=== PATIENT | female | born 1965 | race African-American/Black ===

== ENCOUNTER 2023-05-09 12:57 | Inpatient (IN) | payer OTHER ==
[2023-05-09 14:06] VITALS: BMI 20.5
[2023-05-09] MEDS ORDERED: BENZONATATE 200 MG CAPSULE PO PRN (14:37)
[2023-05-09] MEDS ORDERED: NALOXONE HCL (KLOXXADO) 8 MG SPRAY NS PRN (14:37)
[2023-05-09] MEDS ORDERED: MAG HYDROX/AL HYDROX/SIMETH 30 ML UNIT-DOSE CUP PO PRN (14:37)
[2023-05-09] MEDS ORDERED: LOPERAMIDE HCL 2 MG CAPSULE PO PRN (14:37)
[2023-05-09] MEDS ORDERED: MAGNESIUM HYDROX 2400MG/30ML ORAL SUSPENSION 30 ML CUP PO PRN (14:37)
[2023-05-09] MEDS ORDERED: ACETAMINOPHEN 325 MG TABLET (FP) PO PRN (14:37)
[2023-05-09] MEDS ORDERED: DICYCLOMINE HCL 10 MG CAPSULE PO PRN (14:37)
[2023-05-09] MEDS ORDERED: NALOXONE HCL 0.4 MG/ML VIAL IM PRN (14:37)
[2023-05-09] MEDS ORDERED: ONDANSETRON *ODT* 4 MG TABLET SL PRN (14:37)
[2023-05-09] MEDS ORDERED: NICOTINE POLACRILEX 2 MG GUM BUC PRN (14:37)
[2023-05-09] MEDS ORDERED: BENZOCAINE/MENTHOL (CHLORASEPTIC ) LOZENGE MM PRN (14:37)
[2023-05-09] MEDS ORDERED: POLYETHYLENE GLYCOL (HEALTHYLAX) 3350 17 GM PACKET PO PRN (14:37)
[2023-05-09] MEDS ORDERED: BISMUTH SUBSALICYLATE 524 MG/30 ML PO PRN (14:37)
[2023-05-09] MEDS ORDERED: guaiFENesin 600 MG TABLET.ER (FP) PO PRN (14:37)
[2023-05-09] MEDS ORDERED: P-EPHED 60MG/TRIPROLIDI 2.5MG TABLET PO PRN (14:37)
[2023-05-09] MEDS ORDERED: METOPROLOL TARTRATE 25 MG TABLET (FP) ONE (14:50)
[2023-05-09] MEDS: METOPROLOL TARTRATE 25 MG TABLET (FP) PO ONE (14:52)
[2023-05-09] MEDS: INSULIN ASPART SLIDING SCALE (NOVOLOG) 1 VIAL SQ SCH (15:02)
[2023-05-09] MEDS: METHOCARBAMOL 500 MG TABLET PO PRN (18:03)
[2023-05-09] MEDS: methaDONE HCL 10 MG TABLET (FOR DETOX USE ONLY) PO ONE (20:15)
[2023-05-09] MEDS: cloNIDine HCL 0.1 MG TABLET PO PRN (20:16)
[2023-05-09] MEDS: IBUPROFEN 600 MG TABLET (FP) PO PRN (20:18)
[2023-05-09] MEDS: MELATONIN 5 MG TABLETS PO SCH (22:32)
[2023-05-09] MEDS: THIAMINE HCL 100 MG TABLET (FP) PO SCH (22:32)
[2023-05-10] MEDS: IBUPROFEN 400 MG TABLET (FP) PO PRN (05:42)
[2023-05-10] MEDS: PRENATAL VITAMINS W/ FOLIC ACID TABLET (FP) PO SCH (09:40)
[2023-05-10 09:58] LABS: POTASSIUM 4.4 mmol/L (3.5-5.1)
[2023-05-10] MEDS ORDERED: levETIRAcetam 500 MG TABLET (FP) PO SCH (10:00)
[2023-05-10] MEDS: CHLORTHALIDONE 25 MG TABLET PO SCH (10:03)
[2023-05-10 10:08] LABS: HEMATOCRIT 37.5 % (32.4-45.2); HEMOGLOBIN 12.1 GM/dL (10.7-15.3); MCH 29.6 pg (25.7-33.7); MCHC 32.4 g/dl (32.0-36.0); MEAN CELL VOLUME 91.2 fl (80-96); MEAN PLT VOLUME 9.1 fl (7.5-11.1); PLATELET COUNT 266 10^3/uL (134-434); RBC 4.11 M/mm3 (3.60-5.2); RDW 12.7 % (11.6-15.6); WHITE BLOOD COUNT 7.8 K/mm3 (4.0-10.0)
[2023-05-10 10:15] LABS: CALCIUM 9.8 mg/dL (8.5-10.1)
[2023-05-10 10:16] LABS: ALBUMIN 3.9 g/dl (3.4-5.0); BLOOD UREA NITROGEN 13.1 mg/dL (7-18)
[2023-05-10 10:20] LABS: TOT PROT 7.5 g/dl (6.4-8.2)
[2023-05-10 10:21] LABS: BILIRUBIN,TOTAL 1.2 mg/dL (0.2-1)
[2023-05-10] MEDS: levETIRAcetam 500 MG TABLET (FP) PO SCH (11:13)
[2023-05-10] MEDS ORDERED: ACETAMINOPHEN 325 MG TABLET (FP) PO PRN (11:34)
[2023-05-10] MEDS: INSULIN (LEVEMIR) 100 UNITS/ML UNITS SQ SCH (22:43)
[2023-05-10] MEDS: ATORVASTATIN CA 20 MG TABLET (FP) PO SCH (22:50)
[2023-05-10] MEDS: cloNIDine HCL 0.1 MG TABLET PO ONE (22:52)
[2023-05-11] MEDS: methaDONE HCL 10 MG TABLET (FOR DETOX USE ONLY) PO ONE (09:56)
[2023-05-11] MEDS: amLODIPine BESYLATE 2.5 MG TABLET (FP) PO SCH (14:00)
[2023-05-11] MEDS ORDERED: INSULIN (NOVOLOG) ASPART 100 UNITS/ML 10ML VIAL ONE (17:16)
[2023-05-11] MEDS: diazePAM 5 MG TABLET PO PRN (17:22)
[2023-05-11 21:16] VITALS: RESP 17
[2023-05-12 07:08] VITALS: BP 141/74; PULSE 73; TEMP 97.7
== END 2023-05-12 11:25 | disposition home or self-care (01) | DRG 773 ==
LOC: YASAS 12:57 → Y6N 17:07
PROVIDERS: ADMIT Allergy & Immunology; ATTEND Surgery
PROC: HZ2ZZZZ Detoxification Services for Substance Abuse Treatment (ICD-10-PCS; principal; 2023-05-09)
DX: F11.23 Opioid dependence with withdrawal (principal); F17.210 Nicotine dependence, cigarettes, uncomplicated; F31.9 Bipolar disorder, unspecified; F43.10 Post-traumatic stress disorder, unspecified; I10 Essential (primary) hypertension; E78.5 Hyperlipidemia, unspecified; E55.9 Vitamin D deficiency, unspecified; E11.9 Type 2 diabetes mellitus without complications; Z79.4 Long term (current) use of insulin; R76.8 Other specified abnormal immunological findings in serum; Z86.19 Personal history of other infectious and parasitic diseases; Z28.310 Unvaccinated for COVID-19; Z28.9 Immunization not carried out for unspecified reason; Z99.89 Dependence on other enabling machines and devices
CPT/HCPCS: 0241U-QW; 36415; 80053; 80305; 82962; 83036; 85027; 86593; 86780; 87811; 93005; 93010